=== PATIENT | male | born 1960 | race American Indian/Alaskan Native ===

== ENCOUNTER 2016-12-16 17:29 | Observation (INO) | payer MEDICAID ==
[2016-12-16 17:29] VITALS: BMI 23.3
--- NOTE | 2016-12-16 17:42 | C.PDOC ---
History Of Present Illness 56 y/o male PMH of HIV, HTN, CKD, DM, sent by PMD for admission. Patient has hypoglycemia, BS was 38mg/dL in office when seen by Dr Kelly. Accucheck obtained during triage is 112 mg/dl. Patient is poor historian, sister at bedside. She states patient has been taking his medications, but eating less than usual. Patient complains of mass to left back and blister to left foot noticed yesterday. Time Seen by Provider: 12/16/16 17:39 Chief Complaint (Nursing): Medical Clearance History Per: Patient History/Exam Limitations: no limitations Onset/Duration Of Symptoms: Hrs Current Symptoms Are (Timing): Still Present Recent travel outside of the [place]: No Past Medical History Reviewed: Historical Data, Nursing Documentation, Vital Signs Vital Signs: Last Vital Signs Temp 98.1 F 12/16/16 17:32 Pulse 95 H 12/16/16 17:32 Resp 18 12/16/16 17:32 BP 125/76 12/16/16 17:32 Pulse Ox 100 12/16/16 18:35 - Medical History PMH: Anemia, Anxiety, HIV, HTN, Peripheral Edema, Chronic Kidney Disease - [facility] Procedures EXCISION OF PROSTATE, ENDO (07/18/15) FLUOROSCOPY OF BLADDER USING LOW OSMOLAR CONTRAST (06/13/15) INSPECTION OF BLADDER, ENDO (06/13/15) Family History: States: Unknown Family Hx - Social History Hx Alcohol Use: No Hx Substance Use: Yes Review Of Systems Except As Marked, All Systems Reviewed And Found Negative. Constitutional: Negative for: Fever, Chills Respiratory: Negative for: Cough Gastrointestinal: Negative for: Vomiting, Abdominal Pain, Diarrhea Skin: Positive for: Other (round mass right upper back; left great toe blister) Physical Exam - Physical Exam Appears: Non-toxic, No Acute Distress Skin: Warm, Dry, Other (soft mobile nontender 1x1cm round mass to right upper back, no erythema, swelling, induration or discharge. ) Head: Atraumatic, Normacephalic Eye(s): bilateral: Normal Inspection, EOMI Oral Mucosa: Moist Neck: Normal ROM Chest: Symmetrical Cardiovascular: Rhythm Regular Respiratory: Normal Breath Sounds, No Rales, No Rhonchi, No Wheezing Gastrointestinal/Abdominal: Soft, No Tenderness Extremity: Normal ROM, No Pedal Edema, Other (nontender small blister to lateral left great toe, no erythema, swelling, malodor, or discharge.) Neurological/Psych: Oriented x3, Normal Speech, Normal Cognition ED Course And Treatment - Laboratory Results Result Diagrams: 12/16/16 18:18 12/16/16 18:18 Lab Interpretation: No Acute Changes ECG: Interpreted By Me, Viewed By Me ECG Rhythm: Sinus Rhythm ECG Interpretation: No Acute Changes Rate From EC O2 Sat by Pulse Oximetry: 100 (RA) Pulse Ox Interpretation: Normal Medical Decision Making Medical Decision Making: Impression: hypoglycemia Plan: * accucheck * labs Progress: accucheck was 112 mg/dL. patient with stable vital signs labs reviewed CBC WNL. CMP [address] Kelly who accepts patient to service for obs Disposition - Disposition Disposition: HOSPITALIZED Disposition Time: 18:40 Condition: STABLE - POA Present On Arrival: None - Clinical Impression Clinical Impression: Hypoglycemia - PA / PICKER/PULLER / Resident Statement MD/DO has reviewed & agrees with the documentation as recorded. - Scribe Statement The provider has reviewed the documentation as recorded by the Bijanibemily Roberson Provider Scribe Attestation: All medical record entries made by the Scribe were at my direction and personally dictated by me. I have reviewed the chart and agree that the record accurately reflects my personal performance of the history, physical exam, medical decision making, and the department course for this patient. I have also personally directed, reviewed, and agree with the discharge instructions and disposition. Decision To Admit - Pt Status Changed To: Hospital Disposition Of: Observation - . Bed Request Type: Regular Admitting Physician: Jitendra Kelly Patient Diagnosis: Hypoglycemia
[2016-12-16 18:26] LABS: BASO % 0.3 % (0.0-2.0); EOS # 0.2 K/uL (0.0-0.7); EOS % 2.7 % (0.0-4.0); LYMPH # 1.9 K/uL (1.0-4.3); LYMPH % 21.4 % (20.0-40.0); MEAN CELL VOLUME 95.1 fL (80.0-94.0); MEAN CORPUSCULAR HEMOGLOBIN 29.5 pg (27.0-31.0); MEAN PLATELET VOLUME 8.2 fL (7.2-11.7); MONO # 0.6 K/uL (0.0-0.8); MONO % 7.2 % (0.0-10.0); WHITE BLOOD COUNT 8.9 K/uL (4.8-10.8)
[2016-12-16 18:33] LABS: CHLORIDE 102 mmol/L (98-107)
[2016-12-16 18:34] LABS: POTASSIUM 4.5 mmol/L (3.6-5.2); SODIUM 135 mmol/L (132-148)
[2016-12-16 18:36] LABS: ALB/GLOB RATIO 0.9 (1.0-2.1); ALKALINE PHOSPHATASE 74 U/L (38-126); ALT/SGPT 37 U/L (21-72); AST/SGOT 33 U/L (17-59); BILIRUBIN,TOTAL 0.6 mg/dL (0.2-1.3); BLOOD UREA NITROGEN 43 mg/dL (9-20); CALCIUM 8.1 mg/dl (8.6-10.4); CARBON DIOXIDE 23 mmol/L (22-30); GFR AFRICAN-AMERICAN 29; GLUCOSE,RANDOM 79 mg/dL (75-110); TOTAL PROTEIN 7.8 g/dL (6.3-8.3)
[2016-12-16] MEDS ORDERED: Dextrose 5%/0.9% NS 1,000 ML IV STA (18:41)
[2016-12-16 20:14] VITALS: RESP 20
[2016-12-16] MEDS ORDERED: Pneumococcal 23-Valent Vaccine IM ONE (22:00)
[2016-12-17] MEDS ORDERED: Enoxaparin 40 mg Syringe SC SCH (10:00)
[2016-12-17] MEDS ORDERED: Emtricitabine-Tenofovir 200 mg-300 mg Tab PO SCH (10:00)
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
[2016-12-17 11:38] LABS: HEMATOCRIT 30.6 % (35.0-51.0); MEAN CELL VOLUME 94.2 fL (80.0-94.0); MEAN CORPUSCULAR HEMOGLOBIN 30.4 pg (27.0-31.0); MEAN CORPUSCULAR HGB CONC 32.2 g/dL (33.0-37.0); MEAN PLATELET VOLUME 8.6 fL (7.2-11.7); RED CELL DISTRIBUTION WIDTH 15.1 % (11.5-14.5); WHITE BLOOD COUNT 7.9 K/uL (4.8-10.8)
[2016-12-17 11:56] LABS: POTASSIUM 4.9 mmol/L (3.6-5.2)
[2016-12-17 12:00] LABS: CALCIUM 8.3 mg/dl (8.6-10.4)
[2016-12-17 12:08] VITALS: BP 161/91; PULSE 86; TEMP 98.3; O2SAT 98
--- NOTE | 2016-12-17 15:46 | CP.PCM.PN ---
Subjective - Date & Time of Evaluation Date of Evaluation: 12/17/16 Time of Evaluation: 12:00 - Subjective Subjective: Pt seen and ecxamined today states feels better, denies any dizziness, weakness. no further episode of hypoglycemia reported BS - stable Objective - Vital Signs/Intake and Output Vital Signs (last 24 hours): Temp Pulse Resp BP Pulse Ox 98.3 F 86 20 161/91 H 98 12/17/16 09:00 12/17/16 09:00 12/17/16 09:00 12/17/16 09:00 12/17/16 09:00 Intake and Output: 12/17/16 12/17/16 06:59 18:59 Intake Total 1620 300 Balance 1620 300 - Medications Medications: Current Medications Amlodipine Besylate (Norvasc) 10 mg PO DAILY [facility] Last Admin: 12/17/16 10:16 Dose: 10 mg Emtricitabine/Tenofovir (Truvada 200 Mg-300 Mg) 1 tab PO DAILY [facility] Last Admin: 12/17/16 10:16 Dose: 1 tab Heparin Sodium (Porcine) (Heparin) 5,000 units SC Q8 [facility] Last Admin: 12/17/16 13:18 Dose: 5,000 units Losartan Potassium (Cozaar) 100 mg PO DAILY [facility] Last Admin: 12/17/16 10:20 Dose: 100 mg Raltegravir (Isentress) 400 mg PO BID [facility] Last Admin: 12/17/16 10:16 Dose: 400 mg Tamsulosin HCl (Flomax) 0.4 mg PO DAILY [facility] Last Admin: 12/17/16 10:24 Dose: Not Given - Labs Labs: 12/17/16 11:30 12/17/16 11:30 Assessment and Plan - Assessment and Plan (Free Text) Assessment: 56 yr old male admitted for hypoglycemia bs - stable above 200 d/W Dr. Kelly, stable for disharge home today and f/u with Dr. Kelly office in 1 week insulin regimen changed and continue with lantus Discharge plan discussed with patient who understands and agrees with plan
[2016-12-17 19:05] LABS: RBC URINE 38 /hpf (0-3); URINE BACTERIA MOD (<OCC); URINE BILIRUBIN NEGATIVE (NEGATIVE); URINE BLOOD 1+ (NEGATIVE); URINE GLUCOSE (UA) NORMAL (Normal); URINE KETONE NEGATIVE (NEGATIVE); URINE LEUKOCYTE ESTERASE 2+ Leu/uL (Negative); URINE PROTEIN 3+ mg/dL (NEGATIVE); URINE UROBILINOGEN NORMAL mg/dL (0.2-1.0); WBC CLUMPS OCC /hpf; WBC URINE 82 /hpf (0-5)
[2016-12-17 19:08] LABS: URINE COLOR YELLOW (YELLOW)
--- NOTE | 2016-12-17 22:33 | CP.PCM.DIS ---
Provider - Provider Date of Admission: 12/16/16 18:37 Attending physician: Jitendra Kelly MD Time Spent in preparation of Discharge (in minutes): 30 Diagnosis - Discharge Diagnosis (1) Hypoglycemia Status: Acute Hospital Course - Lab Results Lab Results: Most Recent Lab Values WBC 7.9 K/uL (4.8-10.8) 12/17/16 11:30 RBC 3.25 Mil/uL (4.40-5.90) L 12/17/16 11:30 Hgb 9.9 g/dL (12.0-18.0) L 12/17/16 11:30 Hct 30.6 % (35.0-51.0) L 12/17/16 11:30 MCV 94.2 fL (80.0-94.0) H 12/17/16 11:30 MCH 30.4 pg (27.0-31.0) 12/17/16 11:30 MCHC 32.2 g/dL (33.0-37.0) L 12/17/16 11:30 RDW 15.1 % (11.5-14.5) H 12/17/16 11:30 Plt Count 257 K/uL (130-400) 12/17/16 11:30 MPV 8.6 fL (7.2-11.7) 12/17/16 11:30 Neut % (Auto) 68.4 % (50.0-75.0) 12/16/16 18:18 Lymph % (Auto) 21.4 % (20.0-40.0) 12/16/16 18:18 [facility] % (Auto) 7.2 % (0.0-10.0) 12/16/16 18:18 Eos % (Auto) 2.7 % (0.0-4.0) 12/16/16 18:18 Baso % (Auto) 0.3 % (0.0-2.0) 12/16/16 18:18 Neut # 6.1 K/uL (1.8-7.0) 12/16/16 18:18 Lymph # 1.9 K/uL (1.0-4.3) 12/16/16 18:18 [facility] # 0.6 K/uL (0.0-0.8) 12/16/16 18:18 Eos # 0.2 K/uL (0.0-0.7) 12/16/16 18:18 Baso # 0.0 K/uL (0.0-0.2) 12/16/16 18:18 Sodium 137 mmol/L (132-148) 12/17/16 11:30 Potassium 4.9 mmol/L (3.6-5.2) 12/17/16 11:30 Chloride 104 mmol/L (98-107) 12/17/16 11:30 Carbon Dioxide 22 mmol/L (22-30) 12/17/16 11:30 Anion Gap 15 (10-20) 12/17/16 11:30 BUN 46 mg/dL (9-20) H 12/17/16 11:30 Creatinine 2.9 MG/DL (0.8-1.5) H 12/17/16 11:30 Est GFR ( Amer) 27 12/17/16 11:30 Est GFR (Non-Af Amer) 23 12/17/16 11:30 POC Glucose (mg/dL) 230 mg/dL (65-110) H 12/17/16 16:40 Random Glucose 195 mg/dL (75-110) H 12/17/16 11:30 Calcium 8.3 mg/dl (8.6-10.4) L 12/17/16 11:30 Total Bilirubin 0.6 mg/dL (0.2-1.3) 12/16/16 18:18 AST 33 U/L (17-59) 12/16/16 18:18 ALT 37 U/L (21-72) 12/16/16 18:18 Alkaline Phosphatase 74 U/L (38-126) 12/16/16 18:18 Total Protein 7.8 g/dL (6.3-8.3) 12/16/16 18:18 Albumin 3.7 g/dL (3.5-5.0) 12/16/16 18:18 Globulin 4.1 gm/dL (2.2-3.9) H 12/16/16 18:18 Albumin/Globulin Ratio 0.9 (1.0-2.1) L 12/16/16 18:18 Urine Color Yellow (YELLOW) 12/17/16 18:11 Urine Clarity Turbid (Clear) 12/17/16 18:11 Urine pH 8.0 (5.0-8.0) 12/17/16 18:11 Ur Specific Whipple 1.011 (1.003-1.030) 12/17/16 18:11 Urine Protein 3+ mg/dL (NEGATIVE) H 12/17/16 18:11 Urine Glucose (UA) Normal mg/dL (Normal) 12/17/16 18:11 Urine Ketones Negative mg/dL (NEGATIVE) 12/17/16 18:11 Urine Blood 1+ (NEGATIVE) H 12/17/16 18:11 Urine Nitrate Negative (NEGATIVE) 12/17/16 18:11 Urine Bilirubin Negative (NEGATIVE) 12/17/16 18:11 Urine Urobilinogen Normal mg/dL (0.2-1.0) 12/17/16 18:11 Ur Leukocyte Esterase 2+ Silva/uL (Negative) H 12/17/16 18:11 Urine WBC (Auto) 82 /hpf (0-5) H 12/17/16 18:11 Urine RBC (Auto) 38 /hpf (0-3) H 12/17/16 18:11 Urine WBC Clumps (Auto) Occ /hpf (NONE) H 12/17/16 18:11 Ur Squamous Epith Cells 1 /hpf (0-5) 12/17/16 18:11 Urine Bacteria Mod (<OCC) H 12/17/16 18:11 Serum Ketones Negative (NEGATIVE) 12/16/16 18:18 - Hospital Course Hospital Course: Pt seen and ecxamined today states feels better, denies any dizziness, weakness. 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 Discharge Exam - Head Exam Head Exam: ATRAUMATIC, NORMAL INSPECTION, NORMOCEPHALIC - Eye Exam Eye Exam: EOMI, Normal appearance, PERRL Pupil Exam: NORMAL ACCOMODATION, PERRL - ENT Exam ENT Exam: Mucous Membranes Moist - Respiratory Exam Respiratory Exam: Clear to PA & Lateral, NORMAL BREATHING PATTERN - Cardiovascular Exam Cardiovascular Exam: REGULAR RHYTHM, +S1, +S2 - GI/Abdominal Exam GI & Abdominal Exam: Normal Bowel Sounds Discharge Plan - Discharge Medications Prescriptions: Insulin Glargine,Hum.rec.anlog [Lantus Solostar] 10 unit SQ HS #5 insuln.pen - Follow Up Plan Condition: STABLE Disposition: HOME/ ROUTINE Instructions: Insulin Glargine (By injection), Urinary Tract Infection in Women (DC), Urinary Tract Infection in Men (DC), Dysuria (GEN), Necrotizing Fasciitis (DC), Necrotizing Fasciitis (GEN) Additional Instructions: Please f/u with Dr. Kelly office in 1 week Resume all home medications stop taking NPH continue with lantus sc at hs Referrals: Jitendra Kelly MD [Family Provider] -
--- NOTE | 2016-12-21 18:14 | CARD ---
APPROVED REPORT EKG Measurement Heart [id number] <Conclusion> Normal sinus rhythm Normal ECG
== END 2016-12-17 17:40 | disposition home or self-care (01) ==
LOC: C.ER 17:29 → C.9E 18:37 → C.3T 20:10
PROVIDERS: ADMIT Internal Medicine; ATTEND Internal Medicine
DX: E11.649 Type 2 diabetes mellitus with hypoglycemia without coma (principal); E11.22 Type 2 diabetes mellitus with diabetic chronic kidney disease; I12.9 Hypertensive chronic kidney disease with stage 1 through stage 4 chronic kidney disease, or unspecified chronic kidney disease; N18.9 Chronic kidney disease, unspecified; F17.200 Nicotine dependence, unspecified, uncomplicated; Z21 Asymptomatic human immunodeficiency virus [HIV] infection status
CPT/HCPCS: 36415; 80048; 80053; 81001; 82009; 82948; 85025; 85027; 87086; 99282; G0378; J1644; J7042

== ENCOUNTER 2017-03-17 12:01 | Inpatient (IN) | payer MEDICAID ==
[2017-03-11 13:31] VITALS: BMI 25.8
[2017-03-17] MEDS ORDERED: cefTRIAXone IV 1 gm in Dextros 50 ML IVPB ONE ×3 (14:02→17:26)
[2017-03-17] MEDS ORDERED: Lidocaine 2% Jelly (Uro-Jet) ONE (14:03)
[2017-03-17] MEDS ORDERED: Iohexol 240 (50 ml) ONE (17:26)
[2017-03-17] MEDS ORDERED: Lactated Ringer's 1,000 ML IV ONE ×2 (17:28→18:08)
[2017-03-17] MEDS ORDERED: Propofol 10 mg/ml Inj (20 ML) ONE (17:29)
[2017-03-17] MEDS ORDERED: Acetaminophen-Codeine 300/30 mg Tab PO PRN (17:34)
[2017-03-17] MEDS ORDERED: Lidocaine 1% Inj (20ml) ONE (17:39)
[2017-03-17] MEDS: HYDROmorphone 0.5 mg/0.5 ml ISec IVP PRN ×2 (18:54→20:28)
[2017-03-17] MEDS ORDERED: INSULIN GLARGINE HUM REC ANLOG 10 UNIT SQ SCH (22:00)
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
[2017-03-18 08:38] LABS: BASO # 0.1 K/uL (0.0-0.2); BASO % 0.9 % (0.0-2.0); EOS # 0.2 K/uL (0.0-0.7); EOS % 1.9 % (0.0-4.0); HEMATOCRIT 30.1 % (35.0-51.0); LYMPH # 2.2 K/uL (1.0-4.3); LYMPH % 25.5 % (20.0-40.0); MEAN CORPUSCULAR HEMOGLOBIN 29.3 pg (27.0-31.0); MEAN CORPUSCULAR HGB CONC 31.8 g/dL (33.0-37.0); MEAN PLATELET VOLUME 9.3 fL (7.2-11.7); MONO # 0.7 K/uL (0.0-0.8); MONO % 8.1 % (0.0-10.0); RED CELL DISTRIBUTION WIDTH 12.8 % (11.5-14.5); WHITE BLOOD COUNT 8.8 K/uL (4.8-10.8)
[2017-03-18 08:50] LABS: POTASSIUM 4.7 mmol/L (3.6-5.2)
[2017-03-18 08:52] LABS: ALB/GLOB RATIO 0.8 (1.0-2.1); BILIRUBIN,TOTAL 0.7 mg/dL (0.2-1.3); TOTAL PROTEIN 6.5 g/dL (6.3-8.3)
[2017-03-18 08:53] LABS: CALCIUM 8.1 mg/dl (8.6-10.4)
[2017-03-18 09:31] VITALS: RESP 20
[2017-03-18] MEDS: Dextrose 5%/0.45% NS 1,000 ML IV SCH (10:16)
[2017-03-18] MEDS: Emtricitabine-Tenofovir 200 mg-300 mg Tab PO SCH (10:24)
--- NOTE | 2017-03-18 12:32 | PCM.URO ---
Urology Progress Note - General General: Tolerating Diet - Subjective Abdominal Pain: Yes Flank Pain: No Nausea: No Vomiting: No Hematuria: Yes (mild) Dsypnea: No Chest Pain: No Fever & Chills: No - Objective Lab Results Last 24 Hours: Laboratory Results - last 24 hr 03/17/17 03/17/17 03/18/17 12:49 20:41 08:27 WBC 8.8 RBC 3.27 L Hgb 9.6 L Hct 30.1 L MCV 92.0 MCH 29.3 MCHC 31.8 L RDW 12.8 Plt Count 225 MPV 9.3 Neut % (Auto) 63.6 Lymph % (Auto) 25.5 [place] % (Auto) 8.1 Eos % (Auto) 1.9 Baso % (Auto) 0.9 Neut # 5.6 Lymph # 2.2 [place] # 0.7 Eos # 0.2 Baso # 0.1 Sodium Potassium Chloride Carbon Dioxide Anion Gap BUN Creatinine Est GFR ( Amer) Est GFR (Non-Af Amer) POC Glucose (mg/dL) 219 H 146 H Random Glucose Calcium Total Bilirubin AST ALT Alkaline Phosphatase Total Protein Albumin Globulin Albumin/Globulin Ratio 03/18/17 03/18/17 03/18/17 08:27 08:33 11:50 WBC RBC Hgb Hct MCV MCH MCHC RDW Plt Count MPV Neut % (Auto) Lymph % (Auto) [place] % (Auto) Eos % (Auto) Baso % (Auto) Neut # Lymph # [place] # Eos # Baso # Sodium 139 Potassium 4.7 Chloride 104 Carbon Dioxide 28 Anion Gap 11 BUN 16 Creatinine 1.7 H Est GFR ( Amer) 51 Est GFR (Non-Af Amer) 42 POC Glucose (mg/dL) 184 H 212 H Random Glucose 154 H Calcium 8.1 L Total Bilirubin 0.7 AST 25 ALT 26 Alkaline Phosphatase 50 Total Protein 6.5 Albumin 2.9 L D Globulin 3.6 Albumin/Globulin Ratio 0.8 L Intake & Output: Intake & Output 03/17/17 03/18/17 03/18/17 18:59 06:59 18:59 Output Total 600 250 650 Balance -600 -250 -650 Output: Urine 600 250 650 Suprapubic 100 Urethral (Mo) 550 Vital Signs: Vital Signs - 24 hr 03/17/17 03/17/17 03/17/17 13:33 18:08 18:15 Temperature 97.2 F L Pulse Rate 75 90 83 Respiratory 10 L 10 L Rate Blood Pressure 152/113 H 159/106 H O2 Sat by Pulse 100 100 Oximetry 03/17/17 03/17/17 03/17/17 18:30 18:45 19:00 Temperature Pulse Rate 80 86 78 Respiratory 9 L 10 L 12 Rate Blood Pressure 145/102 H 162/102 H 146/91 H O2 Sat by Pulse 100 100 100 Oximetry 03/17/17 03/17/17 03/17/17 19:15 19:30 20:00 Temperature Pulse Rate 79 84 74 Respiratory 10 L 11 L 9 L Rate Blood Pressure 144/93 H 161/105 H 166/108 H O2 Sat by Pulse 100 98 98 Oximetry 03/17/17 03/17/17 03/17/17 20:30 20:45 21:00 Temperature 98.3 F Pulse Rate 75 75 76 Respiratory 10 L 10 L 12 Rate Blood Pressure 146/80 130/85 157/92 H O2 Sat by Pulse 98 98 96 Oximetry 03/17/17 03/18/17 03/18/17 22:15 00:00 06:37 Temperature 98.9 F 97.9 F Pulse Rate 79 89 Respiratory 9 L 18 Rate Blood Pressure 159/97 H 148/84 O2 Sat by Pulse 95 98 98 Oximetry 03/18/17 03/18/17 08:00 10:29 Temperature 98.3 F Pulse Rate 88 Respiratory 20 Rate Blood Pressure 149/83 149/83 O2 Sat by Pulse 95 Oximetry - Physical Exam Abdominal Exam: Soft, Non-Tender, Non-Distended Dressing: Dry, Intact Back: No CVA Tenderness Genitalia: Without Inflammation Urinary Catheter Draining Well: Yes (mo and cystostomy tubes) Urine Color: [place] - Male Phallus: Normal Scrotum: Normal - Plan Wound Care: Yes Catheter Care: Yes Intake & Output: Yes Additional Information: Imp: stable post insertion of trocar cystostomy tube - Date & Time of Note Date: 03/18/17 Time: 11:05
--- NOTE | 2017-03-18 17:23 | RAD ---
HISTORY: URETRAL STRICTURE/URINARY RETENTION COMPARISON: Or FINDINGS: BOWEL: Constipation without fecal impaction or obstruction. BONES: Normal. OTHER FINDINGS: None. IMPRESSION: No significant or acute findings to account for/ related to the clinical presentation.
--- NOTE | 2017-03-18 17:24 | RAD ---
PROCEDURE: Intraoperative Fluoroscopy. HISTORY: URINARY RETENTION FINDINGS: Fluoroscopic assistance was provided for cystogram and suprapubic Michelle insertion. Please refer to the operative report from Dr. patel during the procedure: 3.2 seconds.
--- NOTE | 2017-03-18 23:03 | CP.PCM.PN ---
Subjective - Date & Time of Evaluation Date of Evaluation: 03/18/17 Time of Evaluation: 10:24 - Subjective Subjective: hematuria, cystostomy, no fever, no nausea, no vomiting Objective - Vital Signs/Intake and Output Vital Signs (last 24 hours): Temp Pulse Resp BP Pulse Ox 98.2 F 80 20 160/78 H 98 03/18/17 15:00 03/18/17 15:00 03/18/17 15:00 03/18/17 22:00 03/18/17 15:00 Intake and Output: 03/18/17 03/19/17 18:59 06:59 Intake Total 300 Output Total 1999 Balance -1700 - Medications Medications: Current Medications Acetaminophen/Codeine Phosphate (Tylenol/Codeine 300 Mg/30 Mg) 1 ea PO Q6 PRN PRN Reason: Bladder Spasm Amlodipine Besylate (Norvasc) 10 mg PO DAILY [facility] Last Admin: 03/18/17 10:24 Dose: 10 mg Carvedilol (Coreg) 25 mg PO Q12 [facility] Last Admin: 03/18/17 22:00 Dose: 25 mg Emtricitabine/Tenofovir (Truvada 200 Mg-300 Mg) 1 tab PO DAILY [facility] Last Admin: 03/18/17 10:24 Dose: 1 tab Home Med (Insulin Glargine,Hum.Rec.Anlog [Lantus Solostar]) 10 unit SQ [facility] Dextrose/Sodium Chloride (Dextrose 5%/0.45% Ns 1000 Ml) 1,000 mls @ 50 mls/hr IV .Q20H [facility] Last Admin: 03/18/17 10:16 Dose: 50 mls/hr Lisinopril (Zestril) 10 mg PO DAILY [facility] Last Admin: 03/18/17 10:24 Dose: 10 mg Ondansetron HCl (Zofran Inj) 4 mg IVP ONCE PRN PRN Reason: Nausea/Vomiting Last Admin: 03/18/17 10:24 Dose: 4 mg Pneumococcal Polyvalent Vaccine (Pneumovax 23 Vaccine) 0.5 ml IM .ONCE ONE Stop: 03/19/17 10:01 Raltegravir (Isentress) 400 mg PO BID [facility] Last Admin: 03/18/17 18:06 Dose: 400 mg Tamsulosin HCl (Flomax) 0.4 mg PO DAILY [facility] Last Admin: 03/18/17 10:24 Dose: 0.4 mg - Labs Labs: 03/18/17 08:27 03/18/17 08:27 - Head Exam Head Exam: ATRAUMATIC, NORMAL INSPECTION, NORMOCEPHALIC - Eye Exam Eye Exam: EOMI, Normal appearance Pupil Exam: NORMAL ACCOMODATION, PERRL - ENT Exam ENT Exam: Mucous Membranes Moist, Normal Exam - Neck Exam Neck Exam: Full ROM, Normal Inspection - Respiratory Exam Respiratory Exam: Clear to Ausculation Bilateral, NORMAL BREATHING PATTERN - Cardiovascular Exam Cardiovascular Exam: REGULAR RHYTHM, +S1, +S2 - GI/Abdominal Exam GI & Abdominal Exam: Soft, Normal Bowel Sounds - Rectal Exam Rectal Exam: NORMAL INSPECTION - Extremities Exam Extremities Exam: Full ROM, Normal Capillary Refill, Normal Inspection - Back Exam Back Exam: NORMAL INSPECTION Assessment and Plan (1) AIDS (acquired immune deficiency syndrome) Status: Chronic (2) Hypertension Status: Chronic (3) Diabetes mellitus Status: Chronic (4) HIV (human immunodeficiency virus infection) Status: Chronic (5) Obstructive uropathy Assessment & Plan: s/p cystostomy, hematuria now Status: Acute
[2017-03-18] MEDS ORDERED: (Lantus) Insulin Glargine, Recombinant SC SCH (23:15)
[2017-03-19] MEDS: Dextrose 5%/0.45% NS 1,000 ML IV SCH (04:00)
[2017-03-19 08:24] LABS: BASO % 0.3 % (0.0-2.0); EOS # 0.2 K/uL (0.0-0.7); EOS % 2.5 % (0.0-4.0); HEMATOCRIT 31.2 % (35.0-51.0); LYMPH # 2.6 K/uL (1.0-4.3); LYMPH % 34.7 % (20.0-40.0); MEAN CELL VOLUME 91.8 fL (80.0-94.0); MEAN CORPUSCULAR HEMOGLOBIN 29.2 pg (27.0-31.0); MEAN CORPUSCULAR HGB CONC 31.8 g/dL (33.0-37.0); MEAN PLATELET VOLUME 9.2 fL (7.2-11.7); MONO # 0.9 K/uL (0.0-0.8); MONO % 11.9 % (0.0-10.0); RED CELL DISTRIBUTION WIDTH 12.8 % (11.5-14.5); WHITE BLOOD COUNT 7.4 K/uL (4.8-10.8)
[2017-03-19 08:38] LABS: POTASSIUM 4.1 mmol/L (3.6-5.2)
[2017-03-19 08:40] LABS: BILIRUBIN,TOTAL 0.5 mg/dL (0.2-1.3)
[2017-03-19 08:41] LABS: ALB/GLOB RATIO 0.8 (1.0-2.1); CALCIUM 8.5 mg/dl (8.6-10.4); TOTAL PROTEIN 6.6 g/dL (6.3-8.3)
[2017-03-19] MEDS: Emtricitabine-Tenofovir 200 mg-300 mg Tab PO SCH (09:22)
[2017-03-19] MEDS ORDERED: Pneumococcal 23-Valent Vaccine IM ONE (10:00)
[2017-03-19] MEDS: (Novolog) Insulin Aspart, Recombinant 100 u/ml 10 ml vial SC SCH ×3 (12:27→21:48)
[2017-03-19] MEDS: Sodium Chloride 0.45% 1,000 ML IV SCH (13:35)
[2017-03-19] MEDS ORDERED: (Novolog) Insulin Aspart, Recombinant 100 u/ml 10 ml vial SC ONE (17:00)
[2017-03-19] MEDS: (Lantus) Insulin Glargine, Recombinant SC SCH (21:57)
--- NOTE | 2017-03-19 22:46 | CP.PCM.PN ---
Subjective - Date & Time of Evaluation Date of Evaluation: 03/19/17 Time of Evaluation: 16:46 - Subjective Subjective: LESS HEMATURIA, NO FEVER, NO SOB Objective - Vital Signs/Intake and Output Vital Signs (last 24 hours): Temp Pulse Resp BP Pulse Ox 98.5 F 83 20 134/67 96 03/19/17 16:00 03/19/17 16:00 03/19/17 16:00 03/19/17 21:57 03/19/17 16:00 Intake and Output: 03/19/17 03/20/17 18:59 06:59 Intake Total 480 Output Total 1310 250 Balance -830 -250 - Medications Medications: Current Medications Acetaminophen/Codeine Phosphate (Tylenol/Codeine 300 Mg/30 Mg) 1 ea PO Q6 PRN PRN Reason: Bladder Spasm Amlodipine Besylate (Norvasc) 10 mg PO DAILY [facility] Last Admin: 03/19/17 11:56 Dose: Not Given Carvedilol (Coreg) 25 mg PO Q12 [facility] Last Admin: 03/19/17 21:57 Dose: 25 mg Emtricitabine/Tenofovir (Truvada 200 Mg-300 Mg) 1 tab PO DAILY [facility] Last Admin: 03/19/17 09:22 Dose: 1 tab Sodium Chloride (Sodium Chloride 0.45%) 1,000 mls @ 60 mls/hr IV .[id number] [facility] Last Admin: 03/19/17 13:35 Dose: 60 mls/hr Insulin Aspart (Novolog) 0 unit SC ACHS [facility] PRN Reason: Protocol Last Admin: 03/19/17 21:48 Dose: Not Given Insulin Glargine (Lantus) 15 unit SC HS [facility] Last Admin: 03/19/17 21:57 Dose: 15 units Lisinopril (Zestril) 10 mg PO DAILY [facility] Ondansetron HCl (Zofran Inj) 4 mg IVP ONCE PRN PRN Reason: Nausea/Vomiting Last Admin: 03/18/17 10:24 Dose: 4 mg Raltegravir (Isentress) 400 mg PO BID [facility] Last Admin: 03/19/17 17:13 Dose: 400 mg Tamsulosin HCl (Flomax) 0.4 mg PO DAILY [facility] Last Admin: 03/19/17 09:22 Dose: 0.4 mg - Labs Labs: 03/19/17 08:11 03/19/17 08:11 - Constitutional Appears: Non-toxic, No Acute Distress, Chronically Ill - Head Exam Head Exam: ATRAUMATIC, NORMAL INSPECTION, NORMOCEPHALIC - Eye Exam Eye Exam: EOMI, Normal appearance Pupil Exam: NORMAL ACCOMODATION - ENT Exam ENT Exam: Mucous Membranes Moist, Normal Exam, Normal Oropharynx - Neck Exam Neck Exam: Full ROM, Normal Inspection - Respiratory Exam Respiratory Exam: Clear to Ausculation Bilateral, NORMAL BREATHING PATTERN - Cardiovascular Exam Cardiovascular Exam: REGULAR RHYTHM, +S1, +S2 - GI/Abdominal Exam GI & Abdominal Exam: Soft, Normal Bowel Sounds - Rectal Exam Rectal Exam: NORMAL INSPECTION - Extremities Exam Extremities Exam: Full ROM, Normal Capillary Refill, Normal Inspection - Neurological Exam Neurological Exam: Abnormal Gait, Alert, Awake Assessment and Plan (1) AIDS (acquired immune deficiency syndrome) Status: Chronic (2) Hypertension Status: Chronic (3) Diabetes mellitus Status: Chronic (4) HIV (human immunodeficiency virus infection) Status: Chronic (5) Obstructive uropathy Status: Acute
[2017-03-20] MEDS: Sodium Chloride 0.45% 1,000 ML IV SCH ×2 (05:47→21:46)
[2017-03-20] MEDS: (Novolog) Insulin Aspart, Recombinant 100 u/ml 10 ml vial SC SCH ×4 (07:51→21:41)
[2017-03-20] MEDS: Emtricitabine-Tenofovir 200 mg-300 mg Tab PO SCH (10:13)
[2017-03-20] MEDS: (Lantus) Insulin Glargine, Recombinant SC SCH (21:43)
--- NOTE | 2017-03-20 23:30 | CP.PCM.PN ---
Subjective - Date & Time of Evaluation Date of Evaluation: 03/20/17 Time of Evaluation: 16:49 - Subjective Subjective: LESS HEMATURIA, NO FEVER, SUGARS ARE FLUCTUATING, NO SOB, NO CHEST PAIN Objective - Vital Signs/Intake and Output Vital Signs (last 24 hours): Temp Pulse Resp BP Pulse Ox 98.1 F 76 20 134/80 98 03/20/17 16:00 03/20/17 16:00 03/20/17 16:00 03/20/17 21:39 03/20/17 16:00 Intake and Output: 03/20/17 03/21/17 18:59 06:59 Intake Total 980 1230 Output Total 1400 1000 Balance -420 230 - Medications Medications: Current Medications Acetaminophen/Codeine Phosphate (Tylenol/Codeine 300 Mg/30 Mg) 1 ea PO Q6 PRN PRN Reason: Bladder Spasm Amlodipine Besylate (Norvasc) 10 mg PO DAILY [facility] Last Admin: 03/20/17 10:12 Dose: 10 mg Carvedilol (Coreg) 25 mg PO Q12 [facility] Last Admin: 03/20/17 21:39 Dose: 25 mg Emtricitabine/Tenofovir (Truvada 200 Mg-300 Mg) 1 tab PO DAILY [facility] Last Admin: 03/20/17 10:13 Dose: 1 tab Sodium Chloride (Sodium Chloride 0.45%) 1,000 mls @ 60 mls/hr IV .[id number] [facility] Last Admin: 03/20/17 21:46 Dose: 60 mls/hr Insulin Aspart (Novolog) 0 unit SC ACHS [facility] PRN Reason: Protocol Last Admin: 03/20/17 21:41 Dose: Not Given Insulin Glargine (Lantus) 15 unit SC HS [facility] Last Admin: 03/20/17 21:43 Dose: 15 units Lisinopril (Zestril) 10 mg PO DAILY [facility] Last Admin: 03/20/17 10:12 Dose: 10 mg Ondansetron HCl (Zofran Inj) 4 mg IVP ONCE PRN PRN Reason: Nausea/Vomiting Last Admin: 03/18/17 10:24 Dose: 4 mg Raltegravir (Isentress) 400 mg PO BID [facility] Last Admin: 03/20/17 17:44 Dose: 400 mg Tamsulosin HCl (Flomax) 0.4 mg PO DAILY [facility] Last Admin: 03/20/17 10:12 Dose: 0.4 mg - Labs Labs: 03/19/17 08:11 03/19/17 08:11 - Constitutional Appears: Non-toxic, No Acute Distress - Head Exam Head Exam: ATRAUMATIC, NORMAL INSPECTION, NORMOCEPHALIC - Eye Exam Eye Exam: EOMI, Normal appearance, PERRL Pupil Exam: NORMAL ACCOMODATION - ENT Exam ENT Exam: Mucous Membranes Moist, Normal Exam, Normal Oropharynx, TM's Normal Bilaterally - Neck Exam Neck Exam: Normal Inspection - Respiratory Exam Respiratory Exam: NORMAL BREATHING PATTERN - Cardiovascular Exam Cardiovascular Exam: REGULAR RHYTHM, +S1, +S2 - GI/Abdominal Exam GI & Abdominal Exam: Soft, Normal Bowel Sounds - Extremities Exam Extremities Exam: Normal Capillary Refill - Neurological Exam Neurological Exam: Abnormal Gait, Alert, Awake, CN II-XII Intact, Oriented x3 Assessment and Plan (1) AIDS (acquired immune deficiency syndrome) Status: Chronic (2) Hypertension Status: Chronic (3) Diabetes mellitus Status: Chronic (4) HIV (human immunodeficiency virus infection) Status: Chronic (5) Obstructive uropathy Assessment & Plan: CYSTOSTOMY, LESS HEMATURIA Status: Acute
[2017-03-21] MEDS: (Novolog) Insulin Aspart, Recombinant 100 u/ml 10 ml vial SC SCH ×5 (08:27→22:38)
[2017-03-21] MEDS: Emtricitabine-Tenofovir 200 mg-300 mg Tab PO SCH (09:33)
[2017-03-21] MEDS: Sodium Chloride 0.45% 1,000 ML IV SCH ×2 (12:35→14:33)
[2017-03-21] MEDS: (Lantus) Insulin Glargine, Recombinant SC SCH (21:45)
[2017-03-22] MEDS: (Novolog) Insulin Aspart, Recombinant 100 u/ml 10 ml vial SC SCH ×4 (08:21→22:03)
[2017-03-22] MEDS: Sodium Chloride 0.45% 1,000 ML IV SCH (08:30)
[2017-03-22] MEDS: Emtricitabine-Tenofovir 200 mg-300 mg Tab PO SCH (09:23)
--- NOTE | 2017-03-22 21:54 | CP.PCM.PN ---
Subjective - Date & Time of Evaluation Date of Evaluation: 03/22/17 Time of Evaluation: 16:53 - Subjective Subjective: NO CHANGES, NO SOB Objective - Vital Signs/Intake and Output Vital Signs (last 24 hours): Temp Pulse Resp BP Pulse Ox 98.5 F 79 20 163/96 H 99 03/22/17 15:00 03/22/17 15:00 03/22/17 15:00 03/22/17 15:00 03/22/17 15:00 Intake and Output: 03/22/17 03/23/17 18:59 06:59 Intake Total 960 Output Total 900 Balance 60 - Medications Medications: Current Medications Amlodipine Besylate (Norvasc) 10 mg PO DAILY [facility] Last Admin: 03/22/17 09:24 Dose: 10 mg Carvedilol (Coreg) 25 mg PO Q12 [facility] Last Admin: 03/22/17 09:23 Dose: 25 mg Emtricitabine/Tenofovir (Truvada 200 Mg-300 Mg) 1 tab PO DAILY [facility] Last Admin: 03/22/17 09:23 Dose: 1 tab Insulin Aspart (Novolog) 0 unit SC ACHS [facility] PRN Reason: Protocol Last Admin: 03/22/17 17:38 Dose: 1 unit Insulin Glargine (Lantus) 15 unit SC HS [facility] Last Admin: 03/21/17 21:45 Dose: 15 units Lisinopril (Zestril) 20 mg PO DAILY [facility] Ondansetron HCl (Zofran Inj) 4 mg IVP ONCE PRN PRN Reason: Nausea/Vomiting Last Admin: 03/18/17 10:24 Dose: 4 mg Raltegravir (Isentress) 400 mg PO BID [facility] Last Admin: 03/22/17 17:37 Dose: 400 mg Tamsulosin HCl (Flomax) 0.4 mg PO DAILY [facility] Last Admin: 03/22/17 09:24 Dose: 0.4 mg - Labs Labs: 03/19/17 08:11 03/19/17 08:11 - Constitutional Appears: Non-toxic, No Acute Distress - Head Exam Head Exam: ATRAUMATIC, NORMAL INSPECTION, NORMOCEPHALIC - Eye Exam Eye Exam: EOMI, Normal appearance - ENT Exam ENT Exam: Mucous Membranes Moist, Normal Exam - Neck Exam Neck Exam: Normal Inspection - Respiratory Exam Respiratory Exam: Clear to Ausculation Bilateral, NORMAL BREATHING PATTERN - GI/Abdominal Exam GI & Abdominal Exam: Soft, Normal Bowel Sounds - Rectal Exam Rectal Exam: NORMAL INSPECTION - Back Exam Back Exam: NORMAL INSPECTION - Neurological Exam Neurological Exam: Abnormal Gait, Alert, Awake, CN II-XII Intact Assessment and Plan (1) AIDS (acquired immune deficiency syndrome) Status: Chronic (2) Hypertension Status: Chronic (3) Diabetes mellitus Status: Chronic (4) HIV (human immunodeficiency virus infection) Status: Chronic (5) Obstructive uropathy Status: Acute
--- NOTE | 2017-03-22 21:54 | CP.PCM.PN ---
Subjective - Date & Time of Evaluation Date of Evaluation: 03/21/17 Time of Evaluation: 16:52 - Subjective Subjective: feels better, less hematuria, no fever, Objective - Vital Signs/Intake and Output Vital Signs (last 24 hours): Temp Pulse Resp BP Pulse Ox 98.5 F 79 20 163/96 H 99 03/22/17 15:00 03/22/17 15:00 03/22/17 15:00 03/22/17 15:00 03/22/17 15:00 Intake and Output: 03/22/17 03/23/17 18:59 06:59 Intake Total 960 Output Total 900 Balance 60 - Medications Medications: Current Medications Amlodipine Besylate (Norvasc) 10 mg PO DAILY [facility] Last Admin: 03/22/17 09:24 Dose: 10 mg Carvedilol (Coreg) 25 mg PO Q12 [facility] Last Admin: 03/22/17 09:23 Dose: 25 mg Emtricitabine/Tenofovir (Truvada 200 Mg-300 Mg) 1 tab PO DAILY [facility] Last Admin: 03/22/17 09:23 Dose: 1 tab Insulin Aspart (Novolog) 0 unit SC ACHS [facility] PRN Reason: Protocol Last Admin: 03/22/17 17:38 Dose: 1 unit Insulin Glargine (Lantus) 15 unit SC HS [facility] Last Admin: 03/21/17 21:45 Dose: 15 units Lisinopril (Zestril) 10 mg PO DAILY [facility] Last Admin: 03/22/17 09:24 Dose: 10 mg Ondansetron HCl (Zofran Inj) 4 mg IVP ONCE PRN PRN Reason: Nausea/Vomiting Last Admin: 03/18/17 10:24 Dose: 4 mg Raltegravir (Isentress) 400 mg PO BID [facility] Last Admin: 03/22/17 17:37 Dose: 400 mg Tamsulosin HCl (Flomax) 0.4 mg PO DAILY [facility] Last Admin: 03/22/17 09:24 Dose: 0.4 mg - Labs Labs: 03/19/17 08:11 03/19/17 08:11 - Constitutional Appears: Non-toxic, No Acute Distress - Head Exam Head Exam: ATRAUMATIC, NORMAL INSPECTION, NORMOCEPHALIC - Eye Exam Eye Exam: EOMI, Normal appearance - ENT Exam ENT Exam: Mucous Membranes Moist, Normal Exam - Neck Exam Neck Exam: Normal Inspection - Respiratory Exam Respiratory Exam: Clear to Ausculation Bilateral, NORMAL BREATHING PATTERN - GI/Abdominal Exam GI & Abdominal Exam: Normal Bowel Sounds - Rectal Exam Rectal Exam: NORMAL INSPECTION - Neurological Exam Neurological Exam: Abnormal Gait, Alert, Awake, CN II-XII Intact - Psychiatric Exam Psychiatric exam: Normal Mood - Skin Skin Exam: Intact Assessment and Plan (1) AIDS (acquired immune deficiency syndrome) Status: Chronic (2) Hypertension Status: Chronic (3) Diabetes mellitus Status: Chronic (4) HIV (human immunodeficiency virus infection) Status: Chronic (5) Obstructive uropathy Assessment & Plan: S/P CYSTOSCOPY Status: Acute
[2017-03-22] MEDS: (Lantus) Insulin Glargine, Recombinant SC SCH (22:02)
[2017-03-23] MEDS: (Novolog) Insulin Aspart, Recombinant 100 u/ml 10 ml vial SC SCH ×4 (08:25→21:25)
[2017-03-23] MEDS: Emtricitabine-Tenofovir 200 mg-300 mg Tab PO SCH (09:55)
[2017-03-23 13:53] LABS: BASO % 0.7 % (0.0-2.0); EOS # 0.2 K/uL (0.0-0.7); EOS % 2.3 % (0.0-4.0); HEMATOCRIT 30.6 % (35.0-51.0); LYMPH # 2.2 K/uL (1.0-4.3); LYMPH % 30.3 % (20.0-40.0); MEAN CELL VOLUME 91.9 fL (80.0-94.0); MEAN CORPUSCULAR HEMOGLOBIN 28.8 pg (27.0-31.0); MEAN CORPUSCULAR HGB CONC 31.3 g/dL (33.0-37.0); MONO # 0.6 K/uL (0.0-0.8); MONO % 8.7 % (0.0-10.0); WHITE BLOOD COUNT 7.3 K/uL (4.8-10.8)
[2017-03-23 14:14] LABS: POTASSIUM 4.1 mmol/L (3.6-5.2)
[2017-03-23 14:18] LABS: CALCIUM 8.6 mg/dl (8.6-10.4)
--- NOTE | 2017-03-23 16:49 | PCM.URO ---
Urology Progress Note - Objective Lab Results Last 24 Hours: Laboratory Results - last 24 hr 03/22/17 03/22/17 03/22/17 07:22 17:20 21:59 WBC RBC Hgb Hct MCV MCH MCHC RDW Plt Count MPV Neut % (Auto) Lymph % (Auto) [place] % (Auto) Eos % (Auto) Baso % (Auto) Neut # Lymph # [place] # Eos # Baso # Sodium Potassium Chloride Carbon Dioxide Anion Gap BUN Creatinine Est GFR ( Amer) Est GFR (Non-Af Amer) POC Glucose (mg/dL) 215 H 163 H 285 H Random Glucose Calcium 03/23/17 03/23/17 03/23/17 07:11 11:30 13:42 WBC 7.3 RBC 3.33 L Hgb 9.6 L Hct 30.6 L MCV 91.9 MCH 28.8 MCHC 31.3 L RDW 13.0 Plt Count 241 MPV 9.0 Neut % (Auto) 58.0 Lymph % (Auto) 30.3 [place] % (Auto) 8.7 Eos % (Auto) 2.3 Baso % (Auto) 0.7 Neut # 4.2 Lymph # 2.2 [place] # 0.6 Eos # 0.2 Baso # 0.0 Sodium Potassium Chloride Carbon Dioxide Anion Gap BUN Creatinine Est GFR ( Amer) Est GFR (Non-Af Amer) POC Glucose (mg/dL) 230 H 318 H Random Glucose Calcium 03/23/17 03/23/17 13:42 16:19 WBC RBC Hgb Hct MCV MCH MCHC RDW Plt Count MPV Neut % (Auto) Lymph % (Auto) [place] % (Auto) Eos % (Auto) Baso % (Auto) Neut # Lymph # [place] # Eos # Baso # Sodium 140 Potassium 4.1 Chloride 103 Carbon Dioxide 27 Anion Gap 14 BUN 15 Creatinine 1.7 H Est GFR ( Amer) 51 Est GFR (Non-Af Amer) 42 POC Glucose (mg/dL) 265 H Random Glucose 239 H Calcium 8.6 Intake & Output: Intake & Output 03/22/17 03/23/17 03/23/17 18:59 06:59 18:59 Intake Total 960 520 500 Output Total 900 1250 1800 Balance 60 -730 -1300 Intake: Intake, IV Amount 480 Right Hand 480 Oral 480 520 500 Output: Urine 900 1250 1800 Suprapubic 900 1250 900 Urethral (Michelle) 900 Other: # Bowel Movements 0 Vital Signs: Vital Signs - 24 hr 03/22/17 03/23/17 03/23/17 22:01 00:00 07:38 Temperature 98.6 F 98.4 F Pulse Rate 74 83 Respiratory 20 20 Rate Blood Pressure 145/80 151/88 H 162/96 H O2 Sat by Pulse 97 97 Oximetry 03/23/17 09:56 Temperature Pulse Rate Respiratory Rate Blood Pressure 162/96 H O2 Sat by Pulse Oximetry
[2017-03-23] MEDS: (Lantus) Insulin Glargine, Recombinant SC SCH (21:23)
--- NOTE | 2017-03-23 22:18 | CP.PCM.PN ---
Subjective - Date & Time of Evaluation Date of Evaluation: 03/23/17 Time of Evaluation: 17:06 - Subjective Subjective: feels better, seen by dr starks, no sob, no chest pain, no cough, no fever Objective - Vital Signs/Intake and Output Vital Signs (last 24 hours): Temp Pulse Resp BP Pulse Ox 98.4 F 82 20 141/80 99 03/23/17 15:00 03/23/17 15:00 03/23/17 15:00 03/23/17 21:22 03/23/17 15:00 Intake and Output: 03/23/17 03/24/17 18:59 06:59 Intake Total 500 Output Total 1800 Balance -1300 - Medications Medications: Current Medications Amlodipine Besylate (Norvasc) 10 mg PO DAILY [facility] Last Admin: 03/23/17 09:55 Dose: 10 mg Carvedilol (Coreg) 25 mg PO Q12 [facility] Last Admin: 03/23/17 21:22 Dose: 25 mg Emtricitabine/Tenofovir (Truvada 200 Mg-300 Mg) 1 tab PO DAILY [facility] Last Admin: 03/23/17 09:55 Dose: 1 tab Insulin Aspart (Novolog) 0 unit SC ACHS [facility] PRN Reason: Protocol Last Admin: 03/23/17 21:25 Dose: Not Given Insulin Glargine (Lantus) 15 unit SC HS [facility] Last Admin: 03/23/17 21:23 Dose: 15 units Lisinopril (Zestril) 20 mg PO DAILY [facility] Last Admin: 03/23/17 09:55 Dose: 20 mg Ondansetron HCl (Zofran Inj) 4 mg IVP ONCE PRN PRN Reason: Nausea/Vomiting Last Admin: 03/18/17 10:24 Dose: 4 mg Raltegravir (Isentress) 400 mg PO BID [facility] Last Admin: 03/23/17 18:04 Dose: 400 mg Tamsulosin HCl (Flomax) 0.4 mg PO DAILY [facility] Last Admin: 03/23/17 09:56 Dose: 0.4 mg - Labs Labs: 03/23/17 13:42 03/23/17 13:42 - Constitutional Appears: Non-toxic, No Acute Distress - Head Exam Head Exam: ATRAUMATIC, NORMAL INSPECTION, NORMOCEPHALIC - Eye Exam Eye Exam: EOMI, Normal appearance - ENT Exam ENT Exam: Mucous Membranes Moist, Normal Exam - Neck Exam Neck Exam: Normal Inspection - Respiratory Exam Respiratory Exam: Clear to Ausculation Bilateral, NORMAL BREATHING PATTERN - GI/Abdominal Exam GI & Abdominal Exam: Soft, Normal Bowel Sounds - Rectal Exam Rectal Exam: NORMAL INSPECTION - Exam Exam: NORMAL INSPECTION - Extremities Exam Extremities Exam: Full ROM, Normal Capillary Refill, Pedal Edema - Neurological Exam Neurological Exam: Abnormal Gait, Alert, Awake, CN II-XII Intact Neuro motor strength exam: Left Upper Extremity: 5, Right Upper Extremity: 5, Left Lower Extremity: 5, Right Lower Extremity: 5 Assessment and Plan (1) AIDS (acquired immune deficiency syndrome) Status: Chronic (2) Hypertension Status: Chronic (3) Diabetes mellitus Status: Chronic (4) HIV (human immunodeficiency virus infection) Status: Chronic (5) Obstructive uropathy Assessment & Plan: s/p or and he is stable Status: Acute
[2017-03-24] MEDS: (Novolog) Insulin Aspart, Recombinant 100 u/ml 10 ml vial SC SCH (08:23)
[2017-03-24 09:49] VITALS: BP 130/80
[2017-03-24 10:40] VITALS: PULSE 79; TEMP 98.5; O2SAT 96
--- NOTE | 2017-03-25 22:34 | CP.PCM.PN ---
Subjective - Date & Time of Evaluation Date of Evaluation: 03/24/17 Time of Evaluation: 17:09 - Subjective Subjective: FEELS BETTER, NO SOB, NO CHEST PAIN, FOR DISCHARGE Objective - Vital Signs/Intake and Output Vital Signs (last 24 hours): Temp Pulse Resp BP Pulse Ox 98.5 F 79 20 130/80 96 03/24/17 08:00 03/24/17 08:00 03/24/17 08:00 03/24/17 09:52 03/24/17 08:00 - Labs Labs: 03/23/17 13:42 03/23/17 13:42 - Constitutional Appears: Non-toxic, No Acute Distress, Chronically Ill - Head Exam Head Exam: ATRAUMATIC, NORMAL INSPECTION, NORMOCEPHALIC - Eye Exam Eye Exam: EOMI, Normal appearance, PERRL Pupil Exam: NORMAL ACCOMODATION - ENT Exam ENT Exam: Mucous Membranes Moist, Normal Exam, Normal Oropharynx, TM's Normal Bilaterally - Neck Exam Neck Exam: Normal Inspection - Respiratory Exam Respiratory Exam: Clear to Ausculation Bilateral, NORMAL BREATHING PATTERN - Cardiovascular Exam Cardiovascular Exam: REGULAR RHYTHM, +S1, +S2 - GI/Abdominal Exam GI & Abdominal Exam: Normal Bowel Sounds - Extremities Exam Extremities Exam: Normal Capillary Refill, Normal Inspection - Neurological Exam Neurological Exam: Abnormal Gait, Alert, Awake, CN II-XII Intact, Oriented x3 Neuro motor strength exam: Left Upper Extremity: 5, Right Upper Extremity: 5, Left Lower Extremity: 5, Right Lower Extremity: 5 - Psychiatric Exam Psychiatric exam: Normal Affect, Normal Mood - Skin Skin Exam: Intact Assessment and Plan (1) AIDS (acquired immune deficiency syndrome) Status: Chronic (2) Hypertension Status: Chronic (3) Diabetes mellitus Status: Chronic (4) HIV (human immunodeficiency virus infection) Status: Chronic (5) Obstructive uropathy Status: Acute
--- NOTE | 2017-04-13 11:37 | DS ---
See history and physical, operative report. At the time of discharge, the patient is home with an indwelling cystostomy tube. The operative preparation as a insertion of a cystostomy tube. He remained stable throughout his course. He was discharged home with an indwelling cystostomy tube and plans for further follow up by way at the office. Jesse Bush MD
--- NOTE | 2017-04-13 14:56 | OP ---
PROCEDURE DATE: 03/17/2017 UROLOGY OPERATIVE REPORT PREOPERATIVE DIAGNOSES: Urinary retention, voiding dysfunction, hydronephrosis, and hematuria. POSTOPERATIVE DIAGNOSES: Urinary retention, voiding dysfunction, hydronephrosis, and hematuria. PROCEDURE: Insertion of a cystostomy tube and a cystogram. SURGEON: Dr. Jesse Bush. BLOOD LOSS: Less than 10 mL. COMPLICATIONS: There were no complications at the termination of procedure. The patient has an indwelling cystostomy tube. There were no complications. He also has an indwelling Michelle catheter. INDICATIONS: See the history and physical for further details. A very pleasant gentleman who has urinary retention and voiding dysfunction. I know the patient for quite some time and has actually been enquiring about the above-listed procedure. He has voiding dysfunction and retention. I also had performed circumcision for severe phimosis. He has known voiding dysfunction, incomplete bladder emptying, and urinary retention. Now he has been with hydronephrosis and renal failure. He was initially seen at [facility]. The patient refused a Michelle catheter. So we have discussed the options and he is now here for the above procedure. DESCRIPTION OF PROCEDURE: After obtaining informed consent, the patient was placed on the table. Routine monitors were placed. Time-out was called to confirm the patient, positioning, etc. We placed the patient, anesthesia was provided and time-out was called confirming the patient. Antibiotic prophylactic was given. We introduced the Michelle Catheter by the urethra and over distended bladder. We confirmed our positioning. We now used a finder needle with spinal needle to identify the bladder. We then measured out our area 2 fingerbreadths above the pubic bone. The bladder was grossly distended. We then went through the same incision, same in angle and we measured the length. We inserted the cystostomy tube. Then we performed, and we injected the contrast confirming the positioning, etc. The bladder was emptied by way of Mcihelle catheter via urethra and also the cystostomy tube. The patient tolerated the procedure well without complications. Jesse Bush MD
== END 2017-03-24 11:52 | disposition home or self-care (01) | DRG 569 ==
LOC: C.SDS 12:01 → C.9S 21:00 → C.5T 22:12 → C.3T 03-20 05:00
PROVIDERS: ADMIT Urology; ATTEND Urology
PROC: 0T9B30Z Drainage of Bladder with Drainage Device, Percutaneous Approach (ICD-10-PCS; principal; 2017-03-17 13:00)
DX: N13.8 Other obstructive and reflux uropathy (principal); B20 Human immunodeficiency virus [HIV] disease; E11.22 Type 2 diabetes mellitus with diabetic chronic kidney disease; N18.9 Chronic kidney disease, unspecified; N13.30 Unspecified hydronephrosis; N40.1 Benign prostatic hyperplasia with lower urinary tract symptoms; R31.9 Hematuria, unspecified; I12.9 Hypertensive chronic kidney disease with stage 1 through stage 4 chronic kidney disease, or unspecified chronic kidney disease; F17.210 Nicotine dependence, cigarettes, uncomplicated; R33.8 Other retention of urine; R39.14 Feeling of incomplete bladder emptying; Z79.899 Other long term (current) drug therapy; Z87.440 Personal history of urinary (tract) infections

== ENCOUNTER 2017-04-27 11:36 | Day surgery (SDC) | payer MEDICAID ==
[2017-03-11 13:31] VITALS: BMI 25.8
[2017-04-27 12:39] VITALS: RESP 18; O2SAT 97
[2017-04-27] MEDS ORDERED: Midazolam 2 MG/2 ML VIAL ONE (14:18)
[2017-04-27 15:16] VITALS: BP 170/96; PULSE 72; TEMP 98
--- NOTE | 2017-04-28 00:59 | OP ---
PREOPERATIVE DIAGNOSES: Urinary retention, voiding dysfunction, renal failure, hydronephrosis, elevated BUN and creatinine, azotemia and hematuria. POSTOPERATIVE DIAGNOSES: Urinary retention, voiding dysfunction, renal failure, hydronephrosis, elevated BUN and creatinine, azotemia and hematuria. PROCEDURE: Removal of cystostomy tube and insertion of a new one, larger size. COMPLICATIONS: There were no complications. ESTIMATED BLOOD LOSS: Less than 5 mL. INDICATIONS: See the history and physical for further details. Very pleasant gentleman who is now doing much better with an indwelling Michelle catheter according to his sister. He is somewhat limited in his abilities. 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 He is here to change the catheter. FINDINGS: The catheter that was in was not really draining well; in fact, we drained out about a 100 plus mL of urine. We corrected it for a 12-inch Michelle catheter, but removed and inserted new one without difficulty, we went from 12- to 14-Persian. Irrigated and it irrigated beautifully. DESCRIPTION OF PROCEDURE: After obtaining informed consent from the patient and the sister, the patient was placed on the table. Routine monitors were placed. Time-out was called to confirm the patient and positioning. We then removed the old catheter, we left the bladder with the urine and inserted new one under sterile technique. Once we drained that, we irrigated, we deflated the balloon and re-irrigated, made sure that we were in the correct anatomical position. The patient tolerated the procedure without complication. We secured it in place. We used a large bag because that is what the patient preferred. Jesse Bush MD
--- NOTE | 2017-04-28 02:23 | HP ---
REASON FOR ADMISSION: Treatment of urinary retention. HISTORY OF PRESENT ILLNESS: A very pleasant gentleman who occasionally has a nonfunctioning catheter. Of late, he has been much happy with the indwelling cystostomy tube rather than a Michelle catheter. We have discussed the options and he is here today, so we will change this. PAST MEDICAL AND SURGICAL HISTORY: As listed. He is HIV positive. No history of WI or CVA. SOCIAL HISTORY: He is a little bit limited in access, his sister takes care of him completely, brings him to the hospital, but he understands everything that is going on. ALLERGIES: THE PATIENT HAS NO KNOWN DRUG ALLERGIES. REVIEW OF SYSTEMS: Well developed. No weight loss, chest pain, shortness of breath or like. No constitutional complaints. PHYSICAL EXAMINATION: GENERAL: Well-nourished male in no apparent distress. VITAL SIGNS: Within normal limits. LUNGS: Clear. ABDOMEN: Overall soft. The cystotomy tube is in good positioning and the sutures are still in place. The catheter is in place. Remainder of the exam, blood works are unremarkable. DIAGNOSES: Urinary retention, voiding dysfunction, hematuria, hydronephrosis, renal failure, azotemia. PLAN: As above. Today, we are going to change the catheter, we are going try go from 12- to 14-Norwegian, this is from the last of fresh stick with the cystostomy tube. He has a significantly abnormal bladder and no other abnormalities from his bladder or his prostrate. No evidence of malignancy. We are going to just try to gently make sure that he is emptying his bladder well. We are going to try the following plan: 1. Antibiotic prophylaxis. 2. We are going to change the cystotomy tube and then further plan will follow. Jesse Bush MD
== END 2017-04-27 15:20 | disposition home or self-care (01) ==
LOC: C.SDS 11:36
PROVIDERS: ATTEND Urology
DX: N13.30 Unspecified hydronephrosis (principal); R33.9 Retention of urine, unspecified